=== PATIENT | female | born 1990 | race Caucasian/White ===

== ENCOUNTER 2018-02-21 08:27 | Emergency (ER) | payer OTHER ==
[~2018-02-21] VITALS: Ht 165.1 cm; Wt 72.6 kg
[~2018-02-21 08:27] MED LIST: DILAUDID4 M1 PO; LORAZEPAM1 M1 PO; MIRTAZAPINE30 M2 PO; ZOFRAN ODT4 M1 PO
--- NOTE | 2018-02-21 08:38 | ED GI/GU/ABDOMINAL COMPLAINT ---
History of Present Illness General Chief Complaint: Abdominal Pain/Flank Pain Stated Complaint: ABD PAIN X2 DAYS Source: patient Exam Limitations: no limitations Vital Signs & Intake/Output Vital Signs & Intake/Output Vital Signs Date Time Temp Pulse Resp B/P B/P Pulse O2 O2 Flow FiO2 Mean Ox Delivery Rate 02/21 1431 98.0 63 18 117/70 98 Room Air 02/21 1230 97.6 68 18 124/63 99 Room Air 02/21 0925 Room Air 02/21 0831 97.5 105 18 131/80 98 Room Air Allergies Coded Allergies: NSAIDS (Non-Steroidal Anti-Inflamma (Mild, ABD DISCOMFORT 09/06/17) acetaminophen (From TYLENOL) (Mild, ABD 09/06/17) ibuprofen (From MOTRIN) (Mild, ABD 09/06/17) Reconcile Medications Hydromorphone HCl 8 MG TABLET 1 TAB PO Q6 PRN PAIN (Reported) Triage Note: 27 YO FEMALE TO TRIAGE C/O VOMTIING AND LUQ PAIN X2 DAYS. DENIES CHANCE OF . DENIES DIARRHEA. STATES FREQUENT URINATION. Triage Nurses Notes Reviewed? yes ? n Is pt currently ? No Onset: Gradual Duration: day(s): Timing: recent history Quality/Severity: moderate, sharpness Location: left upper quadrant HPI: Pt is a 27 yo WF with a PMH significant for newly dx'ed rupesh danlos syndrome, chronic cystitis, arcuate ligament syndrome s/p repair in 2017 (has not f/u with surgeon since), who presents with a 2 day hx of nausea, vomiting, fevers/chills, LUQ abdominal pain. Pt states she has had the same intermittent LUQ pain since 2 months following surgery. She was prescribed dilaudid, however, N/V/chills are new. Pt also reports poor appetite and inability to tolerate even water. RUQ pain is worse with deep inspiration. The patient reports dysuria which is chronic for the past several years, recent worsening is urinary frequency. She denies diarrhea, melena/hematochezia, hematemesis, CP, SOB, cough, sore throat. She denies sick contacts. She denies changes to her diet. Pt's last bowel movement was yesterday morning. Past History Travel History Traveled to [place] past 21 day No Medical History Any Pertinent Medical History? see below for history Neurological: NONE EENT: NONE Cardiovascular: NONE Respiratory: NONE Gastrointestinal: NONE Hepatic: NONE Renal: NONE Musculoskeletal: NONE Psychiatric: NONE Endocrine: NONE Blood Disorders: NONE Cancer(s): NONE [employer] SUPERVISOR/Reproductive: NONE Other Medical Hx: elder's danlos syndrome Surgical History Surgical History: none Psychosocial History What is your primary language American Tobacco Use: Never used Family History Hx Contributory? No Review of Systems Review of Systems Constitutional: Reports: see HPI. EENTM: Reports: no symptoms. Respiratory: Reports: see HPI. Cardiovascular: Reports: no symptoms. GI: Reports: see HPI. Genitourinary: Reports: see HPI. Musculoskeletal: Reports: no symptoms. Skin: Reports: no symptoms. Neurological/Psychological: Reports: no symptoms. Hematologic/Endocrine: Reports: no symptoms. Immunologic/Allergic: Reports: no symptoms. All Other Systems: Reviewed and Negative Physical Exam Physical Exam General Appearance: well developed/nourished, no apparent distress, alert, awake Head: atraumatic, normal appearance Eyes: Bilateral: normal appearance, PERRL, EOMI. Ears, Nose, Throat, Mouth: hearing grossly normal Neck: supple, full range of motion, mild anterior and posterior cervical LAD, tenderness to right side Respiratory: normal breath sounds, chest non-tender, no respiratory distress, lungs clear Cardiovascular: regular rate/rhythm Gastrointestinal: soft, no organomegaly, Pt is tender to light and deep palpation of LUQ as well as palpation to left lateral lower ribs. Back: normal inspection Extremities: normal range of motion Neurologic/Psych: no motor/sensory deficits, awake, alert, oriented x 3 Skin: intact, normal color, warm/dry Core Measures ACS in differential dx? No Sepsis Present: No Sepsis Focused Exam Completed? No Progress Differential Diagnosis: appendicitis, bowel obstruction, colon cancer, cholecystitis, endometritis, gastritis, hepatitis, hernia, ischemic bowel, inflamm bowel dis, kidney stone, ovarian cyst, pancreatitis, peptic ulcer, PUD/ GERD, SBO, threatened AB, UTI/pyelo Plan of Care: Orders Procedure Date/time Status EKG 02/21 0948 Active Add-on Test (ER Only) 02/21 0913 Active URINE DRUG SCREEN FOR ER ONLY 02/21 0857 Complete RAPID VIRAL INFLUENZA A 02/21 0854 Complete TROPONIN LEVEL 02/21 0850 Complete D-DIMER 02/21 0850 Complete URINE 04/03 0838 Complete URINALYSIS 02/21 838 Complete LIPASE 02/21 838 Complete COMPREHENSIVE METABOLIC PANEL 02/21 838 Complete CBC WITHOUT DIFFERENTIAL 02/21 838 Complete AMYLASE 02/21 838 Complete Current Medications Sig/Emmy Start time Last Medication Dose Stop Time Status Admin Morphine Sulfate 4 MG ONCE ONE 02/21 1330 CAN (Morphine) 02/21 1331 Laboratory Tests 02/21/18 1028: Urine Opiates Screen 1206.00, Methadone Screen < 40, Barbiturate Screen < 60, Ur Phencyclidine Scrn < 6.00, Amphetamines Screen < 100, U Benzodiazepines Scrn < 85, Urine Cocaine Screen < 50, Urine Cannabis Screen < 5.00, Urine Color YEL, Urine Clarity HAZY H, Urine pH 6.5, Ur Specific [place] 1.010, Urine Protein NEG, Urine Ketones 40 H, Urine Nitrite NEG, Urine Bilirubin NEG, Urine Urobilinogen 0.2, Ur Leukocyte Esterase NEG, Ur Microscopic SEDIMENT EXAMINED, Urine RBC 1-3, Urine WBC RARE, Ur Epithelial Cells MANY H, Urine Bacteria RARE H, Urine Hemoglobin TRACE-INTACT, Urine Glucose NEG, Urine Test NEGATIVE 02/21/18 0912: D-Dimer High Sensitivty Cancelled 02/21/18 0850: Anion Gap 17 H, Estimated GFR > 60, BUN/Creatinine Ratio 14.0, Glucose 110 H, Calcium 10.5 H, Total Bilirubin 0.8, AST 15, ALT 21, Alkaline Phosphatase 68, Troponin I < 0.01, Total Protein 8.0, Albumin 4.7, Globulin 3.3, Albumin/ Globulin Ratio 1.4, Amylase 54, Lipase 49, D-Dimer High Sensitivty < 200, CBC w Diff NO MAN DIFF REQ, RBC 5.26, MCV 83.9, MCH 28.7, MCHC 34.2, RDW 12.4, MPV 9.1 , Gran % 74.6, Lymphocytes % 19.4 L, Monocytes % 5.4, Eosinophils % 0.1, Basophils % 0.5, Absolute Granulocytes 4.6, Absolute Lymphocytes 1.2, Absolute Monocytes 0.3, Absolute Eosinophils 0, Absolute Basophils 0 Microbiology 02/21 08 NASOPHARYN: Influenza Virus A & B Rapid Smear - COMP CTA shows no acute abnormality. Patient's blood work is within normal limits. Patient has had no episodes of vomiting while being here in the emergency Department. Patient reports her pain and nausea have been well managed with IV morphine and promethazine. Patient is worried about her swollen lymph nodes, is requesting with no biopsy. I referred patient to general surgery for further evaluation and possible biopsy in the future. Patient has had chronic right upper quadrant pain intermittently for several months for which she is on PO Dilaudid loaded. Patient instructed to follow-up with her primary care physician and return with worsening symptoms or concerns. Patient in no acute distress, vital signs are stable, she is nontoxic-appearing. The patient agrees with this plan. The patient was discussed with Dr. Harris who agrees with this plan. Diagnostic Imaging: Viewed by Me: CT Scan. Discussed w/RAD: CT Scan. Radiology Impression: PATIENT: ASHLEY CASANOVA PRESENT AGE: 27 PATIENT ACCOUNT NO: [id number] : 89 LOCATION: [facility] ORDERING PHYSICIAN: Andra DAVE SERVICE DATE: 02/21/18 EXAM TYPE: CAT - CT ABD & PELVIS ANGIOGRAM EXAMINATION: CT ANGIOGRAM ABDOMEN AND PELVIS CLINICAL INFORMATION: Rule out spleen pathology, celiac artery compression. Small bowel obstruction signs and symptoms. History of celiac artery compression, right upper quadrant pain, nausea and vomiting. COMPARISON: None. TECHNIQUE: Multiple axial images were obtained through the abdomen and pelvis following the administration of 95 mL of Optiray 320 intravenous contrast. Images were reviewed on a dedicated 3-D workstation. DLP: 549.23 mGy- cm. FINDINGS: VASCULAR FINDINGS: The visualized descending thoracic aorta appears normal. The abdominal aorta appears normal. The visualized iliofemoral vessels appear normal. The celiac and SMA are both widely patent as is the ENMANUEL. There are single renal arteries present bilaterally which appear normal. NON- VASCULAR FINDINGS: The lung bases and visualized heart appear normal. No pleural effusions are seen. The liver bile ducts, gallbladder, pancreas and spleen appear normal. No adrenal masses are present. Both kidneys appear normal. No retroperitoneal adenopathy is seen. The bowel is unremarkable without evidence of bowel obstruction. No ascites is present. The abdominal wall appears normal. The visualized skeletal system appears normal. An anteverted uterus is present. There is some fluid in the endometrial canal. The bladder is unremarkable. An abnormal adnexal mass is not seen. IMPRESSION: The study is normal. No splenic pathology is present. The celiac artery appears normal. There is no evidence of small bowel obstruction. DICTATED BY: Babak Kuhn MD DATE/TIME DICTATED:02/21 SLEEP MANAGER:DEN DATE/TIME TRANSCRIBED:02/21/181239 CONFIDENTIAL, DO NOT COPY WITHOUT APPROPRIATE AUTHORIZATION. <Electronically signed in Other Vendor System> SIGNED BY: Babak Kuhn MD 02/21/18 0977 Initial ED EKG: sinus rhythm @78bpm Departure Departure Disposition: HOME OR SELF CARE Condition: Stable Clinical Impression Primary Impression: Nausea & vomiting Qualifiers: Vomiting type: unspecified Vomiting Intractability: non-intractable Qualified Code: R11.2 - Nausea with vomiting, unspecified Secondary Impressions: Abdominal pain Qualifiers: Abdominal location: left upper quadrant Qualified Code: R10.12 - Left upper quadrant pain Dysuria Referrals: Abimael Ramos PA-C (PCP/Family) Hal FLORES,Sunil Jeter. Additional Instructions: Follow-up with your primary care doctor. Continue your pain medication in your nausea medication as prescribed by your specialist. You were given a referral for a general surgeon to follow-up with for possible lymph node biopsy. Return with worsening symptoms or concerns. Please note that there might be incidental findings in your evaluation that are unrelated to the current emergency department visit. Please notify your primary care doctor about this emergency department visit in order to obtain and review all of the testing performed so that these incidental findings can be monitored as needed. If you had an x-ray performed, please understand that some fractures may not be seen on the initial set of x-rays. If your symptoms persist you might need a repeat set of x-rays to check for such a fracture. If you had a laceration evaluated, please understand that foreign bodies such as glass or wood may not be visible to the naked eye or on plain x-rays. If the wound becomes red, swollen, increasingly more painful or if there is any drainage from the wound, please have it reevaluated by a physician for the possibility of a retained foreign body. If you're unable to follow up as outlined in the discharge instructions please return to the emergency department. Thank you for choosing the [facility] Emergency Department for your care. It was a pleasure to serve you today. Departure Forms: Customer Survey General Discharge Information
[2018-02-21 08:58] LABS: ABSOLUTE BASOPHIL COUNT 0 /CUMM (0.0-0.2); ABSOLUTE EOSINOPHIL COUNT 0 /CUMM (0.0-0.7); ABSOLUTE GRANULOCYTE CT 4.6 /CUMM (1.4-6.5); ABSOLUTE LYMPH COUNT 1.2 /CUMM (1.2-3.4); ABSOLUTE MONOCYTE COUNT 0.3 /CUMM (0.10-0.60); BASOPHIL % 0.5 % (0.0-2.0); EOSINOPHIL % 0.1 % (0-5); GRANULOCYTE % 74.6 % (42.2-75.2); HEMATOCRIT 44.2 % (37-47); MEAN CORPUSCULAR HGB 28.7 PG (27.0-31.0); MEAN CORPUSCULAR HGB CONC 34.2 G/DL (33.0-37.0); MEAN CORPUSCULAR VOLUME 83.9 FL (81.0-99.0); MEAN PLATELET VOLUME 9.1 FL (7.4-10.4); PLATELET COUNT 256 /CUMM (130-400); RBC DISTRIBUTION WIDTH 12.4 % (11.5-14.5); RED BLOOD CELL CT 5.26 /CUMM (4.20-5.40); WHITE BLOOD CELL COUNT 6.1 /CUMM (4.8-10.8)
[2018-02-21] MEDS ORDERED: HYDROMORPHONE HC8 M1 PO (11:01)
--- NOTE | 2018-02-21 13:57 | CT SCAN REPORT ---
EXAMINATION: CT ANGIOGRAM ABDOMEN AND PELVIS CLINICAL INFORMATION: Rule out spleen pathology, celiac artery compression. Small bowel obstruction signs and symptoms. History of celiac artery compression, right upper quadrant pain, nausea and vomiting. COMPARISON: None. TECHNIQUE: Multiple axial images were obtained through the abdomen and pelvis following the administration of 95 mL of Optiray 320 intravenous contrast. Images were reviewed on a dedicated 3-D workstation. DLP: 549.23 mGy-cm. FINDINGS: VASCULAR FINDINGS: The visualized descending thoracic aorta appears normal. The abdominal aorta appears normal. The visualized iliofemoral vessels appear normal. The celiac and SMA are both widely patent as is the ENMANUEL. There are single renal arteries present bilaterally which appear normal. NON-VASCULAR FINDINGS: The lung bases and visualized heart appear normal. No pleural effusions are seen. The liver bile ducts, gallbladder, pancreas and spleen appear normal. No adrenal masses are present. Both kidneys appear normal. No retroperitoneal adenopathy is seen. The bowel is unremarkable without evidence of bowel obstruction. No ascites is present. The abdominal wall appears normal. The visualized skeletal system appears normal. An anteverted uterus is present. There is some fluid in the endometrial canal. The bladder is unremarkable. An abnormal adnexal mass is not seen. IMPRESSION: The study is normal. No splenic pathology is present. The celiac artery appears normal. There is no evidence of small bowel obstruction.
[2018-02-21 15:24] VITALS: BP 120/72
== END 2018-02-21 15:32 ==
LOC: ERH 08:27
PROVIDERS: Physician Assistant
DX: R11.2 Nausea with vomiting, unspecified (principal); R30.0 Dysuria; R10.12 Left upper quadrant pain
CPT/HCPCS: 74174; 80307; 81001; 81025; 87804; 87804-59; 93005; 93010; 96374; 96375; 96376; J2405; J2550

== ENCOUNTER 2018-06-21 21:29 | Emergency (ER) | payer OTHER ==
[~2018-06-21] VITALS: Ht 165.1 cm; Wt 68.0 kg
[~2018-06-21 21:29] MED LIST changes: +HYDROMORPHONE HC8 M1 PO
[2018-06-21 21:58] LABS: ABSOLUTE BASOPHIL COUNT 0 /CUMM (0.0-0.2); ABSOLUTE EOSINOPHIL COUNT 0 /CUMM (0.0-0.7); ABSOLUTE GRANULOCYTE CT 6.2 /CUMM (1.4-6.5); ABSOLUTE LYMPH COUNT 2.1 /CUMM (1.2-3.4); ABSOLUTE MONOCYTE COUNT 0.7 /CUMM (0.10-0.60); BASOPHIL % 0.3 % (0.0-2.0); EOSINOPHIL % 0.1 % (0-5); GRANULOCYTE % 69.2 % (42.2-75.2); HEMATOCRIT 44.7 % (37-47); MEAN CORPUSCULAR HGB 28.1 PG (27.0-31.0); MEAN CORPUSCULAR HGB CONC 33.3 G/DL (33.0-37.0); MEAN CORPUSCULAR VOLUME 84.2 FL (81.0-99.0); PLATELET COUNT 284 /CUMM (130-400); RBC DISTRIBUTION WIDTH 12.7 % (11.5-14.5); RED BLOOD CELL CT 5.31 /CUMM (4.20-5.40)
--- NOTE | 2018-06-21 22:34 | ED GI/GU/ABDOMINAL COMPLAINT ---
History of Present Illness General Chief Complaint: Nausea, Vomiting, Diarrhea Stated Complaint: NVD Source: patient, old records, friend Exam Limitations: no limitations Vital Signs & Intake/Output Vital Signs & Intake/Output Vital Signs Date Time Temp Pulse Resp B/P B/P Pulse O2 O2 Flow FiO2 Mean Ox Delivery Rate 06/22 0057 97.1 85 18 110/61 98 Room Air 06/21 2236 Room Air 06/21 2135 97.6 88 20 130/81 98 Room Air ED Intake and Output 06/22 0000 06/21 1200 Intake Total 3000 Output Total Balance 3000 Intake, IV 3000 Patient 150 lb Weight Weight Reported by Patient Measurement Method Allergies Coded Allergies: NSAIDS (Non-Steroidal Anti-Inflamma (Mild, ABD DISCOMFORT 09/06/17) acetaminophen (From TYLENOL) (Mild, ABD 09/06/17) ibuprofen (From MOTRIN) (Mild, ABD 09/06/17) Reconcile Medications Hydromorphone HCl 8 MG TABLET 1 TAB PO Q6 PRN PAIN (Reported) Triage Note: PT HERE WITH C/O NAUSEA ND VOMITING X 2 DAYS. PT REPORTS SHE IS UNABLE TO KEEP WATER DOWN. PT REPORTS HAVING UPPER BACK PAIN. PT HAS HX OF CARDIAC ABLATION. PT VERY PALE IN TRIAGE AND WEAK. Triage Nurses Notes Reviewed? yes LMP (ages 10-50): unknown ? n Is pt currently ? No Onset: 2 days Duration: day(s):, continues in ED, waxing and waning Timing: recent history Quality/Severity: severe, vomiting Location: generalized abdomen Radiation: no radiation Activities at Onset: rest Prior Abdominal Problems: similar symptoms Past Sexual History: Unobtainable at this time Modifying Factors: Worsens With: eating. Associated Symptoms: loss of appetite, nausea/vomiting HPI: 2 days prior to admission patient complains of nausea vomiting. Since this time she's been unable to eat or drink. She denies fever chills diarrhea abdominal pain chest pain cough shortness of breath headache dysuria rash bleeding . Past History Travel History Traveled to [place] past 21 day No Medical History Any Pertinent Medical History? see below for history Neurological: NONE EENT: NONE Cardiovascular: NONE Respiratory: NONE Gastrointestinal: NONE Hepatic: NONE Renal: NONE Musculoskeletal: NONE Psychiatric: NONE Endocrine: NONE Blood Disorders: NONE Cancer(s): NONE STAFF MECHANICAL ENGINEER/Reproductive: NONE Other Medical Hx: elder's danlos syndrome Surgical History Surgical History: none Psychosocial History What is your primary language Nauruan Tobacco Use: Never used ETOH Use: denies use Illicit Drug Use: denies illicit drug use Family History Hx Contributory? No Review of Systems Review of Systems Constitutional: Reports: see HPI, malaise. EENTM: Reports: no symptoms. Respiratory: Reports: no symptoms. Cardiovascular: Reports: no symptoms. GI: Reports: see HPI, nausea, vomiting. Genitourinary: Reports: no symptoms. Musculoskeletal: Reports: no symptoms. Skin: Reports: no symptoms. Neurological/Psychological: Reports: no symptoms. Hematologic/Endocrine: Reports: no symptoms. Immunologic/Allergic: Reports: no symptoms. All Other Systems: Reviewed and Negative Physical Exam Physical Exam General Appearance: well developed/nourished, alert, awake, anxious Head: atraumatic, normal appearance Eyes: Bilateral: normal appearance, PERRL, EOMI, normal inspection. Ears, Nose, Throat, Mouth: hearing grossly normal, dry mucous membranes Neck: normal inspection, supple, full range of motion, normal alignment Respiratory: normal breath sounds, chest non-tender, no respiratory distress, quiet respiration, lungs clear Cardiovascular: regular rate/rhythm, normal peripheral pulses, norml femoral pulses equa Peripheral Pulses: 4+ carotid (R), 4+ carotid (L) Gastrointestinal: soft, non-tender, no organomegaly, abnormal bowel sounds Back: normal inspection, normal range of motion Extremities: normal range of motion, no ligament instability Neurologic/Psych: no motor/sensory deficits, awake, alert, oriented x 3, normal gait, medical center manager II-XII nml as tested Skin: intact, normal color, warm/dry Core Measures ACS in differential dx? No Sepsis Present: No Sepsis Focused Exam Completed? No Progress Differential Diagnosis: biliary colic, gastritis, pancreatitis, PUD/GERD Plan of Care: Orders Procedure Date/time Status URINALYSIS 06/220 Complete Add-on Test (ER Only) 06/21 2235 Active Add-on Test (ER Only) 06/21 2201 Active Add-on Test (ER Only) 06/21 2158 Active TSH REFLEX 06/21 2145 Complete TROPONIN LEVEL 06/21 2145 Complete MAGNESIUM 06/21 2145 Complete LIPASE 06/21 2145 Complete HUMAN BETA HCG SCREEN 06/21 2145 Complete COMPREHENSIVE METABOLIC PANEL 06/21 2145 Complete CBC WITHOUT DIFFERENTIAL 06/21 2145 Complete Laboratory Tests 06/22/18 0020: Urine Color YEL, Urine Clarity CLEAR, Urine pH 6.0, Ur Specific [place] 1.010, Urine Protein NEG, Urine Ketones >=80, Urine Nitrite NEG, Urine Bilirubin NEG, Urine Urobilinogen 0.2, Ur Leukocyte Esterase NEG, Ur Microscopic SEDIMENT EXAMINED, Urine RBC 1-3, Urine WBC RARE, Ur Epithelial Cells FEW, Urine Crystals RARE [place] OX, Urine Bacteria FEW H, Urine Hemoglobin TRACE-LYSED, Urine Glucose NEG 06/21/182144: Anion Gap 19 H, Estimated GFR > 60, BUN/Creatinine Ratio 13.3, Glucose 76, Calcium 10.4 H, Magnesium 1.9, Total Bilirubin 1.0, AST 19, ALT 27, Alkaline Phosphatase 75, Troponin I < 0.01, Total Protein 7.9, Albumin 5.0, Globulin 2.9, Albumin/Globulin Ratio 1.7, Lipase 56, TSH &T3 &Free T4 Intrp 0.570, Total Beta HCG NEGATIVE, CBC w Diff NO MAN DIFF REQ, RBC 5.31, MCV 84.2, MCH 28.1, MCHC 33.3, RDW 12.7, MPV 9.0, Gran % 69.2, Lymphocytes % 22.9, Monocytes % 7.5, Eosinophils % 0.1, Basophils % 0.3, Absolute Granulocytes 6.2, Absolute Lymphocytes 2.1, Absolute Monocytes 0.7 H, Absolute Eosinophils 0, Absolute Basophils 0 Initial ED EKG: none Departure Departure Time of Disposition: 206 Disposition: HOME OR SELF CARE Condition: Stable Clinical Impression Primary Impression: Nausea & vomiting Qualifiers: Vomiting type: unspecified Vomiting Intractability: unspecified Qualified Code: R11.2 - Nausea with vomiting, unspecified Secondary Impressions: Dehydration syndrome Referrals: Afia DAVE,Edith Medrano (PCP/Family) [place] FLORES,Julia Additional Instructions: Clear liquids in small amouts for 12-24 hours until better Departure Forms: Customer Survey General Discharge Information Prescriptions: Current Visit Scripts Ondansetron (Zofran Odt) 1 TAB SL TID PRN nausea #10 TAB Promethazine HCl 1 TAB PO Q6P PRN n/v #20 TAB Promethazine HCl (Phenergan) 1 SUPP ME TIDPRN PRN vomiting #10 SUPP
[2018-06-22] MEDS ORDERED: PROMETHAZINE HC25 M3 PO (02:09)
[2018-06-22] MEDS ORDERED: ZOFRAN ODT4 M1 SL (02:09)
[2018-06-22] MEDS ORDERED: PHENERGAN25 M2 PR (02:09)
[2018-06-22 02:17] VITALS: BP 113/65
== END 2018-06-22 02:21 ==
LOC: ERH 21:29
PROVIDERS: Emergency Medicine
DX: R11.2 Nausea with vomiting, unspecified (principal); E86.0 Dehydration
CPT/HCPCS: 81001; 87086; 96361; 96374; 96375; J2405; J2550